=== PATIENT | female | born 1980 | race Caucasian/White ===

== ENCOUNTER 2023-01-18 10:26 | Emergency (ER) | payer MEDICAID ==
[~2023-01-18] VITALS: Ht 160 cm; Wt 99.8 kg
--- NOTE | 2023-01-18 11:59 | NUR ---
pt coming c/o: feet back and neck neuopathy. feels numb/ pain. nka.
--- NOTE | 2023-01-18 12:00 | NUR ---
covid swab collected and sent to lab
--- NOTE | 2023-01-18 12:00 | NUR ---
blood collected for labratory.
[2023-01-18 12:09] LABS: BASOPHILS # (AUTO) 0.1 K/uL (0.0-0.2); BASOPHILS % (AUTO) 0.7 % (0.0-2.0); EOSINOPHILS % (AUTO) 1.6 % (0.0-6.0); HEMATOCRIT 41 % (33-45); HEMOGLOBIN 13.5 g/dL (11.5-14.8); LYMPHOCYTES # (AUTO) 3.2 K/uL (0.8-4.8); LYMPHOCYTES % (AUTO) 41.8 % (20.0-44.0); MEAN CORPUSCULAR HGB CONC 33 g/dl (31.0-36.0); MEAN CORPUSCULAR VOLUME 86 fL (82-100); MONOCYTES # (AUTO) 0.4 K/uL (0.1-1.30); MONOCYTES % (AUTO) 5.8 % (2.0-12.0); NEUTROPHILS # (AUTO) 3.8 K/uL (1.8-8.9); NEUTROPHILS % (AUTO) 50.1 % (43.0-81.0); PLATELET COUNT (AUTO) 306 K/uL (150-450); RED BLOOD CELL COUNT(AUTO) 4.79 MIL/uL (4.0-5.2); WHITE BLOOD COUNT (AUTO) 7.7 K/uL (4.3-11.0)
[2023-01-18 12:20] LABS: CALCIUM, SERUM 9.6 mg/dL (8.5-10.1); CREATININE 0.7 mg/dL (0.6-1.3)
--- NOTE | 2023-01-18 13:04 | NUR ---
PT GIVEN DISCHARGE INSTRUCTIONS AND TOLD TO FOLLOW UP WITH HER PRIMARY CARE PHYSICIAN. LABS CAME OUT NORMAL NO [facility] LABS HAVE BEEN FOUND. VITALS ARE STABLE AND GAIT IS STABLE. NO MEDS GIVEN. NURSE MIDWIFE/CLINICAL INSTRUCTOR USED FOR TRANSLATION.
[2023-01-18 13:05] VITALS: BP 163/95
== END 2023-01-18 13:00 | disposition home or self-care (01) ==
LOC: ER 10:42
DX: R20.2 Paresthesia of skin (principal); R20.0 Anesthesia of skin; Z20.822 Contact with and (suspected) exposure to COVID-19
CPT/HCPCS: 99283; 87426; 85025; 80048; 36415; C9803